=== PATIENT | male | born 1960 | race Caucasian/White ===

== ENCOUNTER 2019-08-03 12:03 | Outpatient (CLI) | payer MEDICARE, SELFPAY ==
[2019-08-03 12:25] LABS: Basophils % 0.5 %; Eosinophils # 0.1 10^3/uL (0.0-0.8); Eosinophils % 1.3 %; Hematocrit 41.1 % (42.0-52.0); Hemoglobin 13.9 g/dL (11.7-16.6); Lymphocytes # 1.7 10^3/uL (0.8-4.8); Lymphocytes % 20.2 %; Mean Corpuscular HGB Conc 33.8 g/dL (30.0-36.0); Mean Corpuscular Hemoglobin 29.1 pg (28.0-34.0); Mean Corpuscular Volume 86.2 fL (80-94); Mean Platelet Volume 10.3 fL (7.4-10.4); Monocytes # 0.7 10^3/uL (0.2-0.9); Monocytes % 8.1 %; Neutrophils % 69.5 %; Nucleated Red Blood Cells % 0 %; Platelet Count 339 10^3/cmm (130-400); Red Blood Count 4.77 10^6/uL (4.1-5.3); Red Cell Distribution Width 11.5 % (12.1-15.1); White Blood Count 8.6 10^3/uL (4.0-10.0)
[2019-08-03 12:53] LABS: Prostate Specific Antigen Scr 0.35 ng/mL (0-4); Thyroid Stimulating Hormone 1.02 uIU/mL (0.27-4.20)
[2019-08-03 13:01] LABS: Estmated Average Glucose 355
[2019-08-03 13:04] LABS: Alanine Aminotransferase 35 U/L (0-41); Albumin Level 4.5 g/dL (3.5-5.2); Alkaline Phosphatase 76 IU/L (40-130); Aspartate Amino Transferase 21 U/L (0-40); Blood Urea Nitrogen 18 mg/dL (8-23); Calcium 10.5 mg/dL (8.5-10.5); Carbon Dioxide 21 mmol/L (22-29); Chloride 91 mmol/L (98-107); Chol HDL Ratio 7.15 mg/dL (1.0-5.00); Cholesterol 236 mg/dL (0-200); Globulin 2.4 g/dL (1.3-4.6); Glomerular Filtration Rate 61.8 mL/min (90-130); HDL Cholesterol 33 mg/dL (60-100); LDL Cholesterol Calculated 136 mg/dL (50-129); LDL HDL Ratio 4.12 RATIO (0.00-3.22); Sodium 126 mmol/L (136-145); Total Bilirubin 0.3 mg/dL (0.15-1.2); Total Protein 6.9 g/dL (6.6-8.7); Triglycerides 337 mg/dL (0-150)
[2019-08-03 13:18] LABS: Glucose 518 mg/dL (65-115)
== END 2019-08-03 12:04 | disposition home or self-care (01) ==
LOC: LAB 12:07
PROVIDERS: Family Provider Physician Assistant; PCP Family Medicine Geriatric Medicine; Visit Provider Physician Assistant
DX: Z86.73 Personal history of transient ischemic attack (TIA), and cerebral infarction without residual deficits; J44.9 Chronic obstructive pulmonary disease, unspecified; I10 Essential (primary) hypertension; Z87.891 Personal history of nicotine dependence; E11.9 Type 2 diabetes mellitus without complications
CPT/HCPCS: 36415; 80053; 80061; 83036; 84439; 84443; 85025; 99204; G0103

== ENCOUNTER → 2019-12-11 09:39 | Outpatient (BNVA) | payer MEDICARE, SELFPAY | PROVIDERS: Family Provider Physician Assistant; PCP Family Medicine Geriatric Medicine; Visit Provider Specialist | DX: Z86.73 Personal history of transient ischemic attack (TIA), and cerebral infarction without residual deficits (principal); Z87.891 Personal history of nicotine dependence | CPT/HCPCS: 99213 ==

== ENCOUNTER → 2020-03-19 11:05 | Outpatient (BNVA) | payer MEDICARE, SELFPAY | PROVIDERS: Family Provider Physician Assistant; PCP Family Medicine Geriatric Medicine; Visit Provider Internal Medicine Cardiovascular Disease | DX: I10 Essential (primary) hypertension (principal) | CPT/HCPCS: 80048; 83735; 83880 ==

== ENCOUNTER → 2020-06-04 11:41 | Outpatient (BNVA) | payer MEDICARE, SELFPAY | PROVIDERS: Family Provider Physician Assistant; PCP Family Medicine Geriatric Medicine; Visit Provider Internal Medicine Cardiovascular Disease | DX: E11.40 Type 2 diabetes mellitus with diabetic neuropathy, unspecified (principal); E78.2 Mixed hyperlipidemia; I10 Essential (primary) hypertension | CPT/HCPCS: 80053; 80061; 83036; 83721; 85025 ==

== ENCOUNTER → 2020-08-02 10:20 | Outpatient (BNVA) | payer MEDICARE, SELFPAY | PROVIDERS: Family Provider Physician Assistant; PCP Family Medicine Geriatric Medicine; Visit Provider Internal Medicine Pulmonary Disease | DX: Z01.812 Encounter for preprocedural laboratory examination (principal); R06.02 Shortness of breath | CPT/HCPCS: 87635 ==

== ENCOUNTER → 2020-08-29 09:21 | Outpatient (BNVA) | payer MEDICARE, SELFPAY | PROVIDERS: PCP Family Medicine; Visit Provider Internal Medicine Pulmonary Disease | DX: Z01.818 Encounter for other preprocedural examination (principal) | CPT/HCPCS: 87635 ==

== ENCOUNTER 2020-09-04 07:56 | Outpatient (CLI) | payer MEDICARE, SELFPAY ==
--- NOTE | 2020-09-04 08:03 | CT_ITS ---
WS: [id number] CT CHEST TECHNIQUE: Noncontrast CT of the chest with coronal and sagittal reformatted images. CLINICAL INFORMATION: FOLLOW UP ON LUNG NODULE COMPARISON: CT chest March 28, 2019 DLP: 685.[address] scans at [facility] use at least one of these dose optimization techniques: automat ed exposure control; mA and/or kV adjustment per patient size (includes targeted exams where dose is matched to clinical indication); or iterative reconstruction. FINDINGS: 6 mm noncalcified nodule right upper lobe is unchanged since July 29, 2018. Mild chronic emphysem atous changes. No acute pulmonary infiltrates. No focal pneumonia or pleural fluid. No other suspicio us pulmonary parenchymal opacities. Normal caliber thoracic aorta. Coronary calcification. No mediastinal or hilar lymphadenopathy.A few prominent axillary lymph nodes likely reactive with normal fatty ami. Adrenal glands are normal. Normal GE junction. Cholelithiasis. Mild thoracic kyphosis with ankylosis. Anterior hypertrophic changes in the mid thoracic spine. CT/CT chest [facility] [id number] IMPRESSION: 1. Noncalcified 6 mm right upper lobe pulmonary nodule is unchanged since 2018. Recommend 12 month follow-up. 2. No mediastinal or hilar lymphadenopathy. 3. Cholelithiasis. 4. No other significant changes from previous.
--- NOTE | 2020-09-04 10:50 | PFTS_ITS ---
Date of Study:09/04/20 Date of Dictation: MECHANICS: Forced vital capacity (FVC) is reduced. Forced expiratory volume in one second (FEV1) is reduced. FEV1/FVC is reduced. FLOW VOLUME LOOP: Reduced flow at all lung volumes with scooping. LUNG VOLUMES: Total lung capacity (TLC) is reduced. Residual volume (RV) is normal. DIFFUSING CAPACITY FOR CARBON MONOXIDE: Mild reduced. INTERPRETATION: The postbronchodilator spirometry is consistent with moderate obstruction. There is no significant bronchodilator response. Lung volumes are consistent with mild restriction. Gas exchange (DLCO) is mildly reduced. MTDD
== END 2020-09-04 07:57 | disposition home or self-care (01) ==
LOC: RT 07:58
PROVIDERS: PCP Family Medicine; Visit Provider Internal Medicine Pulmonary Disease
DX: R91.1 Solitary pulmonary nodule (principal); J44.9 Chronic obstructive pulmonary disease, unspecified; K80.20 Calculus of gallbladder without cholecystitis without obstruction
CPT/HCPCS: 71250; 94060; 94618; 94726; 94729; J7611

== ENCOUNTER 2023-10-14 11:10 | Outpatient (CLI) | payer MEDICARE, SELFPAY ==
--- NOTE | 2023-10-14 11:15 | CT_ITS ---
WS: [id number] CT ABDOMEN WITHOUT CONTRAST HISTORY: ABDOMINAL PAIN Contiguous single phase 5 mm axial imaging performed to the abdomen. Oral contrast has been provided. Coronal and sagittal reformats are submitted. All CT scans at [facility] use at least one of these dose optimization techniques: automated exposure control; mA and/or kV adjustment per patient size (includes targeted exams where dose is matched to clinical indication); or iterative reconstruct ion. IV CONTRAST: None Oral contrast: Yes. DLP: 193.08 mGy.cm COMPARISON: 03/28/[address] Lower thorax: 8 mm nodule at the LEFT lung base is stable since 2019. small hiatal hernia. Liver/biliary system: Normal size with no intrahepatic dilatation. Gallbladder: Cholelithiasis without evidence for acute cholecystitis. Pancreas: Normal size pancreas and pancreatic duct. No adjacent inflammation. Spleen: Normal size spleen. No mass or infarct. Adrenal glands: Normal. Right kidney: Normal. Vascular calcification. Left kidney: Normal. Vascular calcification. Aorta: Mild atherosclerosis with no aneurysm. Lymphadenopathy: None. Free fluid: None. GI tract: Unremarkable. Abdominal wall: Unremarkable abdominal wall. No hernia. Visualized osseous structures: Unremarkable. IMPRESSION: 1. Cholelithiasis without acute cholecystitis. 2. No renal obstruction. 3. No ascites or adenopathy.
[2023-10-14] MEDS: iohexol 350 mg/mL 500 mL Btl (per mL) PO (12:22)
--- NOTE | 2023-10-14 12:31 | XR_ITS ---
WS: [id number] Exam: XR chest 2V* [id number] Date/Time of Exam: 10/14/2023 12:36 PM Reason For Exam: ABDOMINAL PAIN/SHORTNESS OF BREATH Comparison 01/18/2019. The lungs are clear and fully inflated. Normal cardiomediastinal silhouette. Bony structures are inta ct. Degenerative changes and increased thoracic kyphosis. IMPRESSION: 1. No acute cardiopulmonary finding.
== END 2023-10-14 11:11 | disposition home or self-care (01) ==
LOC: RAD 11:10
PROVIDERS: PCP Family Medicine; Visit Provider Family Medicine
DX: R10.9 Unspecified abdominal pain (principal); R06.02 Shortness of breath; K80.20 Calculus of gallbladder without cholecystitis without obstruction
CPT/HCPCS: 71046; 74150; Q9967